=== PATIENT | female | born 1950 | race Caucasian/White ===

== ENCOUNTER 2017-08-29 08:39 | Outpatient (CLI) | payer MEDICARE | END 2017-08-29 08:40 | disposition home or self-care (01) | LOC: BICMAMMO 08:39 | PROVIDERS: ATTEND Family Medicine | DX: Z12.31 Encounter for screening mammogram for malignant neoplasm of breast (principal) | CPT/HCPCS: 77063; 77067 ==

== ENCOUNTER 2018-10-20 10:28 | Outpatient (CLI) | payer MEDICARE ==
--- NOTE | 2018-10-21 15:33 | MMO ---
Bilateral MAMMO Bilat Screen [facility]. CLINICAL HISTORY: Patient is 68 years old and is seen for screening. The patient has the following family history of breast cancer: maternal aunt and cousin gender unknown. The patient has a history of thyroid cancer. The patient has a history of right Stereotatic Biopsy in 2001 - benign. VIEWS: The views performed were: bilateral craniocaudal with tomosynthesis and bilateral mediolateral oblique with tomosynthesis. FILMS COMPARED: The present examination has been compared to prior imaging studies performed at [facility] on 04/22/2008, 05/08/2009, 06/20/2010, 03/04/2013, 05/24/2014, 12/12/2015 and 08/29/2017, and at [facility] on 02/19/2002 and 11/21/2004. MAMMOGRAM FINDINGS: The breasts are heterogeneously dense, which could obscure a lesion on mammography. Benign calcifications are noted bilaterally. No suspicious calcifications or masses are seen. Right biopsy clip. IMPRESSION: FINDINGS IN BOTH BREASTS ARE BENIGN. A ROUTINE FOLLOW-UP MAMMOGRAM IN 1 YEAR IS RECOMMENDED. THE RESULTS OF THIS EXAM WERE SENT TO THE PATIENT. ACR BI-RADS Category 2 - Benign finding MAMMOGRAPHY NOTE: 1. A negative mammogram report should not delay a biopsy if a dominant of clinically suspicious mass is present. 2. Approximately 10% to 15% of breast cancers are not detected by mammography. 3. Adenosis and dense breasts may obscure an underlying neoplasm.
== END 2018-10-20 10:29 | disposition home or self-care (01) ==
LOC: BICMAMMO 10:28
PROVIDERS: ATTEND Family Medicine
DX: Z12.31 Encounter for screening mammogram for malignant neoplasm of breast (principal); Z80.3 Family history of malignant neoplasm of breast; Z85.850 Personal history of malignant neoplasm of thyroid
CPT/HCPCS: 77063; 77067

== ENCOUNTER 2018-10-22 08:04 | Outpatient (CLI) | payer MEDICARE ==
--- NOTE | 2018-10-22 09:10 | BD ---
BONE DENSITOMETRY USING DEXA: Date: 10/22/18 HISTORY: Postmenopausal screening for osteoporosis. FINDINGS: Lumbar Spine: BMD (g/cm2) L1 0.867 T-Score: -1.1 Z-Score: 0.6 L2 0.844 T-Score: -1.7 Z-Score: 0.2 L3 0.860 T-Score: -2.0 Z-Score: -0.1 L4 0.932 T-Score: -1.2 Z-Score: 0.8 L1-L4 0.877 T-Score: -1.5 Z-Score: 0.3 Femoral Neck: 0.720 T-Score: -1.2 Z-Score: 0.4 Total Femur: 0.764 T-Score: -1.5 Z-Score: -0.1 IMPRESSION: Osteopenia. POS: PATEL
== END 2018-10-22 08:05 | disposition home or self-care (01) ==
LOC: BICMAMMO 08:04
PROVIDERS: ATTEND Family Medicine
DX: M81.0 Age-related osteoporosis without current pathological fracture (principal); M85.89 Other specified disorders of bone density and structure, multiple sites
CPT/HCPCS: 77080